=== PATIENT | male | born 1970 | race African-American/Black ===

== ENCOUNTER 2016-11-10 17:34 | Emergency (ER) ==
[2016-11-10 17:44] VITALS: BP 163/97; TEMP 97.7; BMI 37.2
[2016-11-10 18:09] LABS: BASOPHILS # (AUTO) 0.1 K/uL (0-0.2); BASOPHILS % (AUTO) 1.1 % (0.0-3.0); EOSINOPHILS # (AUTO) 0.1 K/ul (0.0-0.7); EOSINOPHILS % (AUTO) 2.4 % (0.0-7.0); HEMATOCRIT 35.7 % (42.0-52.0); HEMOGLOBIN 11.6 g/dl (14.0-18.0); IMMATURE GRANULOCYTE % (AUTO) 0.5 % (0.0-5.0); LYMPHOCYTES # (AUTO) 2.1 K/uL (0.60-3.4); LYMPHOCYTES % (AUTO) 38.4 (10.0-50.0); MEAN CORPUSCULAR HEMOGLOBIN 28.5 pg (27.0-31.0); MEAN CORPUSCULAR HGB CONC 32.5 (31.8-35.4); MEAN CORPUSCULAR VOLUME 87.7 fl (80.0-94.0); MONOCYTES # (AUTO) 0.5 K/uL (0.4-2.0); MONOCYTES % (AUTO) 8.4 (0-10); NEUTROPHILS # (AUTO) 2.7 K/ul (2.0-6.9); NEUTROPHILS % (AUTO) 49.2; PLATELET COUNT 165 10^3/uL (140-440); RED BLOOD COUNT 4.07 10^6/ul (4.70-6.10); WHITE BLOOD COUNT 5.49 K/ul (4.2-10.2)
[2016-11-10 18:23] LABS: BILIRUBIN,URINE Negative (NEGATIVE); KETONES,URINE Negative (NEGATIVE); LEUKOCYTE ESTERASE ,URINE Negative (NEGATIVE); NITRITE,URINE Negative (NEGATIVE); PH,URINE 5.5 (5-9); PROTEIN,URINE Negative (NEGATIVE); URINE, BLOOD Negative (NEGATIVE)
[2016-11-10 18:24] LABS: ADD URINE MICROSCOPIC NO
--- NOTE | 2016-11-10 18:45 | ED.PDOC ---
General Stated Complaint: c/o constipation since hernia repair one month ago..also right arm numbness as well for one month Time Seen by Physician: 17:45 Mode of Arrival: Walk-In Information Source: Patient Exam Limitations: No limitations Nursing and Triage Documentation Reviewed and Agree: Yes <SHERRI LOWE - Last Filed: 11/10/16 18:46> <KEVEN YATES - Last Filed: 11/10/16 19:43> ED Provider: Dr. KEVEN YATES (SHERRI LOWE) (KEVEN YATES) Chief Complaint: Abdominal Pain Primary Care Provider: SHERRI LOPEZ) (KEVEN YATES) GI Complaint Exam - Abdominal Pain Complaint/Exam Onset: Gradual Duration: 30 days Symptoms Are: Still present Timing: Intermittent Initial Severity: Mild Current Severity: Mild Location of Pain: Diffuse Character: Reports: Dull, Aching, Cramping Aggravating: Reports: None Alleviating: Reports: Spontaneous resolution Associated Signs and Symptoms: Reports: Constipation AAA Risk Factors: Reports: Hypertension Cardiac Risk Factors: Reports: DM, Hypertension Surgical Obstruction Risk Factors: Reports: None Related Surgical History: Reports: None Differential Diagnoses: Constipation Quality Indicator For Non-Traumatic Chest Pain/Syncope: EKG Performed <SHERRI LOWE - Last Filed: 11/10/16 18:46> Review of Systems - Review Of Systems Constitutional: Reports: No symptoms Eyes: Reports: No symptoms Ears, Nose, Mouth, Throat: Reports: No symptoms Respiratory: Reports: No symptoms Cardiac: Reports: No symptoms GI: Reports: Abdominal pain, Constipated : Reports: No symptoms Musculoskeletal: Reports: No symptoms Skin: Reports: No symptoms Neurological: Reports: No symptoms Endocrine: Reports: No symptoms Hematologic/Lymphatic: Reports: No symptoms All Other Systems: Reviewed and Negative <SHERRI LOWE - Last Filed: 11/10/16 18:46> Past Medical History - Past Medical History Endocrine: Reports: DM 2 Cardiovascular: Reports: Hypertension Respiratory: Reports: None Hematological: Reports: None, Sickle Cell Gastrointestinal: Reports: Pancreatitis Genitourinary: Reports: None Neuro/Psych: Reports: Seizure Musculoskeletal: Reports: None Cancer: Reports: None - Surgical History General Surgical History: Reports: None - Family History Family History: Reports: Hypertension - Social History Smoking Status: Current every day smoker, Heavy tobacco smoker Hx Substance Use: No Alcohol Screening: None Lives: With family <MYNORSHERRI - Last Filed: 11/10/16 18:46> - Surgical History General Surgical History: Reports: Hernia Repair (RT 1-17) <KEVEN YATES - Last Filed: 11/10/16 19:43> Physical Exam - Physical Exam Appearance: Well-appearing, No pain distress, Well-nourished Pain Distress: Mild Eyes: YRIS, EOMI, Conjunctiva clear ENT: Ears normal, Nose normal, Oropharynx normal Neck: Supple Respiratory: Airway patent Cardiovascular: RRR, Pulses normal, No rub, No murmur GI/: Soft, Nontender, No masses, Bowel sounds normal, No Organomegaly Musculoskeletal: Normal strength, ROM intact, No edema, No calf tenderness Skin: Warm, Dry, Normal color Neurological: Sensation intact, Motor intact, Reflexes intact, Cranial nerves intact, Alert, Oriented Psychiatric: Affect appropriate, Mood appropriate <EUGENIA-ELVISSHERRI - Last Filed: 11/10/16 18:46> Interpretation - Radiology Interpretation Radiology Interpretation By: Radiologist Radiology Results: Negative Exam Interpreted: CT Scan <MARGARET YATESAN Last Filed: 11/10/16 19:43> Physician Notification - Case Discussed Physician Notified: dr [email or web address] Time of Notification: 19:00 <MYNORSHERRI - Last Filed: 11/10/16 18:46> Critical Care Note - Critical Care Note Total Time (mins): 0 <KEVEN YATES - Last Filed: 11/10/16 19:43> Course - Course Hematology/Chemistry: 11/10/16 18:00 <MYNORSHERRI - Last Filed: 11/10/16 18:46> - Course Hematology/Chemistry: 11/10/16 18:00 11/10/16 18:00 <KEVEN YATES - Last Filed: 11/10/16 19:43> - Course Orders, Labs, Meds: Lab Review 11/10/16 18:00 WBC 5.49 RBC 4.07 L Hgb 11.6 L Hct 35.7 L MCV 87.7 MCH 28.5 MCHC 32.5 RDW Coeff of Zoya 16.3 H Plt Count 165 Immature Gran % (Auto) 0.5 Neut % (Auto) 49.2 Lymph % (Auto) 38.4 [place] % (Auto) 8.4 Eos % (Auto) 2.4 Baso % (Auto) 1.1 Immature Gran # (Auto) 0.0 Neut # 2.7 Lymph # 2.1 [place] # 0.5 Eos # 0.1 Baso # 0.1 ESR 34 H D-Dimer 0.48 Sodium 140 Potassium 3.4 L Chloride 107 Carbon Dioxide 24 Anion Gap 12.4 BUN 10 Creatinine 1.23 H Estimated GFR (MDRD) 77.00 BUN/Creatinine Ratio 8.13 Glucose 89 Calcium 8.9 Total Bilirubin 0.29 AST 26 ALT 18 Alkaline Phosphatase 97 Total Creatine Kinase 545 CK-MB (CK-2) 3.0 CK-MB (CK-2) % 0.21925 Troponin I < 0.0100 Total Protein 7.9 Albumin 3.8 Globulin 4.1 Albumin/Globulin Ratio 0.93 Amylase 93 Lipase 34 Urine Color Yellow Urine Clarity Clear Urine pH 5.5 Ur Specific [place] 1.010 Urine Protein Negative Urine Glucose (UA) Negative Urine Ketones Negative Urine Blood Negative Urine Nitrite Negative Urine Bilirubin Negative Urine Urobilinogen 0.2 Ur Leukocyte Esterase Negative Orders Category Date Time Status EKG-(ED ONLY) Stat CARDIO 11/10/16 17:52 Completed Upper Tier [ED COMPLIANCE MGR APPLIED] .ONCE EMERGENCY 11/10/16 17:53 Active AMYLASE Stat LAB 11/10/16 18:00 Completed CBC W/ AUTO DIFF Stat LAB 11/10/16 18:00 Completed COMPREHENSIVE METABOLIC PANEL Stat LAB 11/10/16 18:00 Completed CREATINE KINASE Stat LAB 11/10/16 18:00 Completed D-DIMER Stat LAB 11/10/16 18:00 Completed ESR Stat LAB 11/10/16 18:00 Completed LIPASE Stat LAB 11/10/16 18:00 Completed TROPONIN I Stat LAB 11/10/16 18:00 Completed URINALYSIS C & S IF INDICATED Stat LAB 11/10/16 18:[address] ABDOMEN/PELVIS WO CONTRAST Stat RADS 11/10/16 18:[address] CERVICAL SPINE W/O CONTRAST Stat RADS 11/10/16 18:[address] CHEST W/O CONTRAST Stat RADS 11/10/16 18:[address] HEAD W/O CONTRAST Stat RADS 11/10/16 18:39 Completed (EUGENIA-ER,SHERRI) (KEVEN YATES) Vital Signs: Temp Pulse Resp BP Pulse Ox 11/10/16 17:40 97.7 F 66 16 163/97 H 99 (SHERRI LOWE) (KEVEN YATES) Departure <SHERRI LOWE - Last Filed: 11/10/16 18:46> - Departure Time of Disposition: 19:37 Pt referred to PMD for follow-up: Yes Disposition Discussed With: Patient <KEVEN YATES - Last Filed: 11/10/16 19:43> - Departure Disposition: HOME SELF-CARE Discharge Problem: Abdominal pain, History of surgery for acute abdominal pain Instructions: Abdominal Pain (ED) Condition: Stable Additional Instructions: INCREASE HYDRATION HIGH FIBRE DIET HAVE F/U WITH SURGEON SCHEDULED. Allergies/Adverse Reactions: Allergies No Known Allergies Allergy (Verified 11/10/16 17:48) Home Medications: Ambulatory Orders Divalproex Sodium [Divalproex Sodium ER] 500 mg PO BID 06/22/15 Hydrochlorothiazide 12.5 mg PO DAILY 06/22/15 Metformin HCl [Glucophage] 500 mg PO BIDWM 06/22/15 Metoprolol Tartrate [Lopressor] 50 mg PO BID 06/22/15
[2016-11-10 18:55] LABS: ALANINE AMINOTRANSFERASE 18 U/L (12-78); ALBUMIN 3.8 g/dL (3.4-5.0); ALBUMIN/GLOBULIN RATIO 0.93; ALKALINE PHOSPHATASE 97 U/L (50-136); AMYLASE 93 U/L (25-115); ANION GAP 12.4; ASPARTATE AMINO TRANSFERASE 26 U/L (15-37); BILIRUBIN,TOTAL 0.29 mg/dL (0.00-1.20); BLOOD UREA NITROGEN 10 mg/dL (7-18); BUN/CREATININE RATIO 8.13; CALCIUM 8.9 mg/dL (8.2-10.2); CARBON DIOXIDE 24 mmol/L (21-32); CHLORIDE 107 mmol/L (98-107); CREATINE KINASE 545 U/L; CREATININE 1.23 mg/dL (0.60-1.10); GLUCOSE 89 mg/dL (70-100); LIPASE 34 U/L (8-78); POTASSIUM 3.4 mmol/L (3.5-5.1); SODIUM 140 mmol/L (136-145); TOTAL PROTEIN 7.9 g/dL (6.4-8.2)
[2016-11-10 18:57] LABS: ERYTHROCYTE SEDIMENTATION RATE 34 mm/hr (0-15); ESR INTERNAL QC INTERNAL QC VALID
--- NOTE | 2016-11-10 19:18 | CT ---
EXAM: CT head without contrast. HISTORY: Vomiting, numbness. COMPARISON: None available. TECHNIQUE: Multiple axial images of the brain were obtained from the skull base through the vertex without intravenous contrast. FINDINGS: There is no intracranial hemorrhage or extraaxial collection. The wright-white differentia tion is maintained without evidence for acute large vascular territory infarction. The cortical sul ci and basal cisterns are well visualized. There is no hydrocephalus, mass effect, or midline shift . The paranasal sinuses and mastoid air cells are clear. The calvarium is intact. IMPRESSION: No acute intracranial abnormality.
--- NOTE | 2016-11-10 19:22 | CT ---
EXAM: CT cervical spine without contrast. HISTORY: Vomiting. Right arm numbness. COMPARISON: None available. TECHNIQUE: Multiple axial images of the cervical spine were obtained without intravenous contrast. Images were reformatted in the sagittal and coronal planes. FINDINGS: There is straightening of the normal lordosis which may be positional. Otherwise, there is normal curvature and alignment. Vertebral body and intervertebral disc heights are maintained. No fracture or subluxation is seen. There is no evidence for significant central canal stenosis. T he prevertebral soft tissues are unremarkable. IMPRESSION: No acute abnormality of the cervical spine.
--- NOTE | 2016-11-10 19:24 | CT ---
EXAM: CT chest without contrast. HISTORY: Right arm numbness. Vomiting. Constipation. Recent hernia surgery. COMPARISON: Chest radiograph 05/27/2016. TECHNIQUE: Multiple axial images of the chest were obtained without intravenous contrast. Images w ere reformatted in the sagittal and coronal planes. FINDINGS: Evaluation for lymphadenopathy is limited due to lack of intravenous contrast. Heart siz e is normal. There is no pericardial effusion. Dependent ground-glass opacities seen in both lower lobes, consist with subsegmental atelectasis. No lobar consolidation, pleural effusion or pneumoth orax identified. Limited images of the upper abdomen demonstrate no acute abnormality. Refer to abdominal CT report for details. The osseous structures are within normal limits for the patient's age. IMPRESSION: No acute abnormality of the chest.
--- NOTE | 2016-11-10 19:30 | CT ---
EXAM: CT Abdomen without contrast. CT Pelvis without contrast. HISTORY: Abdominal pain, constipation. Recent right hernia repair. COMPARISON: 05/27/2016. TECHNIQUE: Multiple axial images of the abdomen and pelvis were obtained without intravenous contra st. Images were reformatted in the coronal plane. FINDINGS: Please note that evaluation of the abdominal and pelvic structures is limited due to lack of intravenous contrast. Dependent subsegmental atelectasis seen in the lower lobes. No acute osseous abnormality identified . Degenerative changes are seen at L5-S1. Gallbladder is contracted. The liver, pancreas, spleen, adrenal glands, and kidneys demonstrate nor mal contour. No calcified renal stones or hydronephrosis detected. Possible wall thickening of the ascending colon best seen on axial images 57-76 although this area i s incompletely distended. There is no cecal or small bowel distension however. There is normal dis tension of the remainder of the colon. The appendix is not seen. Urinary bladder is unremarkable. There has been interval right inguinal hernia repair. No abnormal fluid collections or abnormal ai r collections identified. Moderate-sized fat-containing umbilical hernia is present. IMPRESSION: 1. Focal wall thickening versus incomplete distension of the ascending colon. Consider follow-up C T or barium enema as warranted. No evidence for bowel obstruction. 2. Evidence of right inguinal hernia repair without complication. 3. Fat-containing umbilical hernia.
== END 2016-11-10 19:49 | disposition home or self-care (01) ==
LOC: ED 17:34
DX: R10.84 Generalized abdominal pain (principal); I10 Essential (primary) hypertension; E11.9 Type 2 diabetes mellitus without complications; K59.00 Constipation, unspecified; F17.210 Nicotine dependence, cigarettes, uncomplicated; D57.1 Sickle-cell disease without crisis; Z98.890 Other specified postprocedural states; Z79.899 Other long term (current) drug therapy
CPT/HCPCS: 36415; 80053; 81001; 82150; 82550; 82553; 83690; 84484; 85025; 85379; 85651; 93005; 93010; 99283

== ENCOUNTER 2017-02-22 12:00 | Outpatient (CLI) ==
[2013-03-01 11:31] VITALS: TEMP 98
[2017-02-22 13:31] LABS: BASOPHILS # (AUTO) 0.1 K/uL (0-0.2); BASOPHILS % (AUTO) 1.1 % (0.0-3.0); EOSINOPHILS # (AUTO) 0.1 K/ul (0.0-0.7); EOSINOPHILS % (AUTO) 1.7 % (0.0-7.0); HEMATOCRIT 36.1 % (42.0-52.0); HEMOGLOBIN 11.5 g/dl (14.0-18.0); IMMATURE GRANULOCYTE % (AUTO) 0.3 % (0.0-5.0); LYMPHOCYTES # (AUTO) 1.9 K/uL (0.60-3.4); LYMPHOCYTES % (AUTO) 30.1 (10.0-50.0); MEAN CORPUSCULAR HEMOGLOBIN 28.1 pg (27.0-31.0); MEAN CORPUSCULAR HGB CONC 31.9 (31.8-35.4); MEAN CORPUSCULAR VOLUME 88.3 fl (80.0-94.0); MONOCYTES # (AUTO) 0.5 K/uL (0.4-2.0); MONOCYTES % (AUTO) 8.1 (0-10); NEUTROPHILS # (AUTO) 3.8 K/ul (2.0-6.9); NEUTROPHILS % (AUTO) 58.7; PLATELET COUNT 151 10^3/uL (140-440); RED BLOOD COUNT 4.09 10^6/ul (4.70-6.10); WHITE BLOOD COUNT 6.42 K/ul (4.2-10.2)
[2017-02-22 14:07] LABS: ALBUMIN 3.9 g/dL (3.4-5.0); ALBUMIN/GLOBULIN RATIO 0.93; ANION GAP 12.6; BILIRUBIN,TOTAL 0.39 mg/dL (0.00-1.20); BUN/CREATININE RATIO 8.33; CALCIUM 9.2 mg/dL (8.2-10.2); CREATININE 1.2 mg/dL (0.60-1.10); POTASSIUM 3.6 mmol/L (3.5-5.1); TOTAL PROTEIN 8.1 g/dL (6.4-8.2)
== END 2017-02-22 12:01 | disposition home or self-care (01) ==
LOC: LAB 12:00
PROVIDERS: ATTEND Nurse Practitioner Family
DX: E75.6 Lipid storage disorder, unspecified (principal); I10 Essential (primary) hypertension; Z86.39 Personal history of other endocrine, nutritional and metabolic disease
CPT/HCPCS: 36415; 80053; 80061; 83036; 85025

== ENCOUNTER 2017-05-03 11:31 | Emergency (ER) ==
[2017-05-03 11:41] VITALS: BP 157/100; TEMP 98.4; BMI 28.8
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
[2017-05-03] MEDS: BENADRYL PO STA (12:08)
[2017-05-03] MEDS: SOLU-MEDROL 125 MG IM STA (12:10)
--- NOTE | 2017-05-03 12:45 | DI ---
EXAM: CHEST FRONTAL AND LATERAL VIEWS HISTORY: Cough, edema. COMPARISON: 05/27/2016 FINDINGS: Heart size and mediastinal contour remain within normal limits. No acute infiltrates. Normal vascularity with no pleural fluid or pneumothorax. The bony thorax has no acute finding. IMPRESSION: No acute process.
== END 2017-05-03 13:22 | disposition home or self-care (01) ==
LOC: ED 11:31
DX: T78.1XXA Other adverse food reactions, not elsewhere classified, initial encounter (principal); T78.3XXA Angioneurotic edema, initial encounter; I10 Essential (primary) hypertension; F17.210 Nicotine dependence, cigarettes, uncomplicated
CPT/HCPCS: 96372; 99283

== ENCOUNTER 2017-06-01 08:44 | Emergency (ER) ==
[2017-06-01 08:58] VITALS: BP 157/94; TEMP 98.2; BMI 29.7
[2017-06-01] MEDS ORDERED: TORADOL IM STA (09:09)
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
== END 2017-06-01 10:05 | disposition home or self-care (01) ==
LOC: ED 08:44
DX: S60.211A Contusion of right wrist, initial encounter (principal); S63.501A Unspecified sprain of right wrist, initial encounter; W20.8XXA Other cause of strike by thrown, projected or falling object, initial encounter
CPT/HCPCS: 96372; 99283

== ENCOUNTER 2017-06-14 11:36 | Outpatient (CLI) ==
[2013-03-01 11:31] VITALS: TEMP 98
[2017-06-14 12:32] LABS: BASOPHILS # (AUTO) 0.1 K/uL (0-0.2); BASOPHILS % (AUTO) 1.1 % (0.0-3.0); EOSINOPHILS # (AUTO) 0.1 K/ul (0.0-0.7); EOSINOPHILS % (AUTO) 2.2 % (0.0-7.0); HEMATOCRIT 37.9 % (42.0-52.0); HEMOGLOBIN 12.4 g/dl (14.0-18.0); IMMATURE GRANULOCYTE % (AUTO) 0.5 % (0.0-5.0); LYMPHOCYTES # (AUTO) 2.2 K/uL (0.60-3.4); LYMPHOCYTES % (AUTO) 35.2 (10.0-50.0); MEAN CORPUSCULAR HGB CONC 32.7 (31.8-35.4); MEAN CORPUSCULAR VOLUME 88.8 fl (80.0-94.0); MONOCYTES # (AUTO) 0.5 K/uL (0.4-2.0); MONOCYTES % (AUTO) 7.2 (0-10); NEUTROPHILS # (AUTO) 3.4 K/ul (2.0-6.9); NEUTROPHILS % (AUTO) 53.8; PLATELET COUNT 149 10^3/uL (140-440); RED BLOOD COUNT 4.27 10^6/ul (4.70-6.10); WHITE BLOOD COUNT 6.28 K/ul (4.2-10.2)
--- NOTE | 2017-06-14 13:12 | CT ---
EXAM: CT of the abdomen pelvis without contrast History: Generalized abdominal pain. Comparison: CT abdomen pelvis 11/10/2016 Technique: Multiplanar CT images through the abdomen pelvis were obtained without the administration of IV contrast Findings: Lung bases are clear. No acute osseous abnormalities. Moderate degenerative disc disease at L5-S1. No discrete gallstones identified by CT. No focal liver or splenic lesions. No peripancreatic infla mmation. Adrenal glands are unremarkable. No renal stones and no hydronephrosis. Fat-containing um bilical hernia again noted. No bowel obstruction. Scattered colonic stool. No bladder wall thicken ing. No perirectal inflammation. Prostate is not enlarged. Question small bilateral scrotal hydroc eles. Impression: 1. No acute intra-abdominal or pelvic process. 2. Question small bilateral scrotal hydroceles. 3. Fat-containing umbilical hernia again noted.
[2017-06-14 13:26] LABS: ALANINE AMINOTRANSFERASE 20 U/L (12-78); ALBUMIN 4.1 g/dL (3.4-5.0); ALBUMIN/GLOBULIN RATIO 0.85; ALKALINE PHOSPHATASE 107 U/L (50-136); AMYLASE 104 U/L (25-115); ANION GAP 13.5; ASPARTATE AMINO TRANSFERASE 18 U/L (15-37); BILIRUBIN,TOTAL 0.56 mg/dL (0.00-1.20); BLOOD UREA NITROGEN 10 mg/dL (7-18); BUN/CREATININE RATIO 8.19; CALCIUM 9.7 mg/dL (8.2-10.2); CARBON DIOXIDE 25 mmol/L (21-32); CHLORIDE 103 mmol/L (98-107); CHOL/HDL RATIO 5.8 (4.5-6.4); CHOLESTEROL 273 mg/dL (0-200); CREATININE 1.22 mg/dL (0.60-1.10); FERRITIN 8.32 ng/mL (21.81-274.66); GLUCOSE 90 mg/dL (70-100); HDL CHOLESTEROL 47 mg/dL (35-60); IRON 63 ug/dL (65-175); LIPASE 12 U/L (8-78); POTASSIUM 3.5 mmol/L (3.5-5.1); SODIUM 138 mmol/L (136-145); TOTAL IRON BINDING CAPACITY 481 ug/dL (240-450); TOTAL PROTEIN 8.9 g/dL (6.4-8.2); TRIGLYCERIDES 163 mg/dL (30-150); VLDL CHOLESTEROL 33 mg/dL (2-30)
[2017-06-14 13:32] LABS: VALPORIC ACID (DEPAKENE) < 2.00 ug/mL (50.00-100.00)
== END 2017-06-14 11:37 | disposition home or self-care (01) ==
LOC: RAD 11:36
PROVIDERS: ATTEND Nurse Practitioner Family
DX: R10.84 Generalized abdominal pain (principal); N50.82 Scrotal pain; D64.9 Anemia, unspecified; E75.6 Lipid storage disorder, unspecified; I10 Essential (primary) hypertension; G40.909 Epilepsy, unspecified, not intractable, without status epilepticus; Z86.39 Personal history of other endocrine, nutritional and metabolic disease
CPT/HCPCS: 36415; 80053; 80061; 80164; 82150; 82607; 82728; 83036; 83540; 83550; 83690; 84439; 84443; 84466; 85025

== ENCOUNTER 2017-09-08 14:10 | Outpatient (CLI) ==
[2013-03-01 11:31] VITALS: TEMP 98
[2017-09-08 14:15] LABS: BASOPHILS # (AUTO) 0.1 K/uL (0-0.2); BASOPHILS % (AUTO) 1.2 % (0.0-3.0); EOSINOPHILS # (AUTO) 0.1 K/ul (0.0-0.7); EOSINOPHILS % (AUTO) 2.6 % (0.0-7.0); HEMATOCRIT 37.4 % (42.0-52.0); HEMOGLOBIN 12.2 g/dl (14.0-18.0); IMMATURE GRANULOCYTE % (AUTO) 0.2 % (0.0-5.0); LYMPHOCYTES # (AUTO) 1.7 K/uL (0.60-3.4); LYMPHOCYTES % (AUTO) 41.2 (10.0-50.0); MEAN CORPUSCULAR HEMOGLOBIN 29.3 pg (27.0-31.0); MEAN CORPUSCULAR HGB CONC 32.6 (31.8-35.4); MEAN CORPUSCULAR VOLUME 89.7 fl (80.0-94.0); MONOCYTES # (AUTO) 0.4 K/uL (0.4-2.0); MONOCYTES % (AUTO) 8.9 (0-10); NEUTROPHILS # (AUTO) 1.9 K/ul (2.0-6.9); NEUTROPHILS % (AUTO) 45.9; PLATELET COUNT 146 10^3/uL (140-440); RED BLOOD COUNT 4.17 10^6/ul (4.70-6.10); WHITE BLOOD COUNT 4.17 K/ul (4.2-10.2)
[2017-09-08 15:51] LABS: ALBUMIN/GLOBULIN RATIO 0.87; ANION GAP 11.8; BILIRUBIN,TOTAL 0.49 mg/dL (0.00-1.20); BUN/CREATININE RATIO 8.02; CALCIUM 9.4 mg/dL (8.2-10.2); CHOL/HDL RATIO 6.3 (4.5-6.4); CREATININE 1.37 mg/dL (0.60-1.10); POTASSIUM 3.8 mmol/L (3.5-5.1); TOTAL PROTEIN 8.6 g/dL (6.4-8.2)
== END 2017-09-08 14:11 | disposition home or self-care (01) ==
LOC: LAB 14:10
PROVIDERS: ATTEND Nurse Practitioner Family
DX: D64.9 Anemia, unspecified (principal); I10 Essential (primary) hypertension; R10.84 Generalized abdominal pain
CPT/HCPCS: 36415; 80053; 80061; 82150; 83036; 83690; 85025

== ENCOUNTER 2017-09-14 09:14 | Outpatient (CLI) ==
[2013-03-01 11:31] VITALS: TEMP 98
--- NOTE | 2017-09-14 10:25 | US ---
EXAM: Limited abdominal ultrasound. History: Generalized abdominal pain. Comparison: CT abdomen pelvis 06/14/2017 Technique: Multiple sonographic images through the abdomen were obtained. Color duplex Doppler was used to interrogate vascular flow. Findings: Pancreas was not well visualized due to obscuration by bowel gas. There is antegrade flow within the main portal vein. The liver is not echogenic compared to the adjacent right renal cortex. No focal liver lesions identified sonographically. No abdominal ascites. No shadowing gallstones. Gallbladder wall is not thickened. Common bile duct measures 0.4 cm in caliber. Limited visualiza tion of the right kidney demonstrates no evidence for hydronephrosis. Impression: Unremarkable exam
== END 2017-09-14 09:15 | disposition home or self-care (01) ==
LOC: RAD 09:14
PROVIDERS: ATTEND Nurse Practitioner Family
DX: R10.84 Generalized abdominal pain (principal); R10.9 Unspecified abdominal pain

== ENCOUNTER 2017-09-20 07:41 | Outpatient (CLI) ==
[2013-03-01 11:31] VITALS: TEMP 98
--- NOTE | 2017-09-20 10:25 | NM ---
EXAM: Hepatobiliary scan HISTORY: Generalized abdominal pain. COMPARISON: None of this type. Ultrasound 09/14/2017. PROCEDURE: The patient was injected with 5 mCi of 99mTc mebrofenin intravenously. Images of the abdo men were obtained at 5 min intervals for 30 minutes. Additional images were obtained 45 minutes and 1 hour. The patient was then injected with 2 mcg of CCK by slow infusion while images of the gallblad antolin were obtained to assess gallbladder contraction. The the patient reported no symptoms during CCK injection. FINDINGS: Sequential images demonstrate normal uptake of tracer into the liver. Activity is seen in the intrahepatic biliary ducts at about 15 minutes. The activity appears in the gallbladder at about 20 minutes. Subsequent images demonstrate increasing activity in the gallbladder. Activity first a ppears in the small bowel following CCK. The gallbladder ejection fraction is 6% . IMPRESSION: 1.Normal hepatobiliary scan. 2.The gallbladder ejection fraction is 6% (low).
== END 2017-09-20 07:42 | disposition home or self-care (01) ==
LOC: RAD 07:41
PROVIDERS: ATTEND Emergency Medicine
DX: R10.84 Generalized abdominal pain (principal); R10.9 Unspecified abdominal pain

== ENCOUNTER 2017-11-25 07:29 | Observation (INO) ==
[2017-11-25 07:36] VITALS: BP 174/118
--- NOTE | 2017-11-25 07:47 | ED.PDOC ---
General ED Provider: Dr. WINDY MOON Chief Complaint: Extremity Pain/Injury Stated Complaint: Patient is a 47 year old male who has a history of hypertension who comes to the ER with complaints of left shoulder pain, left eye pain , chest pain and headache that started yesterday. States has pain is worse with movement of left shoulder. Denies any heavy lifting or trauma. Rates his pain as severe. Time Seen by Physician: 07:49 Mode of Arrival: Walk-In Information Source: Patient Exam Limitations: No limitations [facility] Nursing and Triage Documentation Reviewed and Agree: Yes Reviewed sepsis parameters & appropriate labs ordered?: No System Inflammatory Response Syndrome: Not Applicable Sepsis Protocol: For patient's 13 years and over: Temp is 96.8 and below OR 101 and greater Pulse >90 BPM Resp >20/minute Acutely Altered Mental Status Are patient's symptoms suggestive of a new infection, such as: -Pneumonia -Skin, Soft Tissue -Endocarditis -UTI -Bone, Joint Infection -Implantable Device -Acute Abdominal Infection -Wound Infection -Meningitis -Blood Stream Catheter Infection -Unknown System Inflammatory Response Syndrome: Not Applicable Musculoskeletal Complaint Exam - Shoulder Pain Complaint/Exam Mechanism of Injury: Reports: No known trauma Onset/Duration: 1 day Symptoms Are: Still present Timing: Constant Initial Severity: Moderate Current Severity: Severe Location: Reports: Diffuse Character: Reports: Aching Aggravating: Reports: Movement, Lifting Associated Signs and Symptoms: Denies: Swelling, Redness, Bruising, Fever, Weakness, Numbness, Tingling Non-Orthopedic Risk Factors: Reports: Referred pain from chest DVT Risk Factors: Reports: None Septic Arthritis Risk Factors: Reports: None Related Surgical History: Reports: None Tenderness: Present: Rotator cuff muscles Limited Range of Motion: Present: Abduction, External rotation Differential Diagnoses: Rotator Cuff Injury, Sprain, Strain Review of Systems - Review Of Systems Constitutional: Reports: No symptoms Eyes: Reports: Pain (Left eye pain ) Ears, Nose, Mouth, Throat: Reports: No symptoms Respiratory: Reports: No symptoms Cardiac: Reports: Chest pain GI: Reports: No symptoms : Reports: No symptoms Musculoskeletal: Reports: No symptoms Skin: Reports: No symptoms Neurological: Reports: Anxiety, Headache Endocrine: Reports: No symptoms Hematologic/Lymphatic: Reports: No symptoms All Other Systems: Reviewed and Negative Past Medical History - Past Medical History Endocrine: Reports: DM 2 Cardiovascular: Reports: Hypertension Respiratory: Reports: None Hematological: Reports: Sickle Cell Gastrointestinal: Reports: Pancreatitis Genitourinary: Reports: None Neuro/Psych: Reports: Seizure Musculoskeletal: Reports: None Cancer: Reports: None Other Pertinent Past Medical History: hernia surgery right lower abd- states having rectal bleeding(recc follow u - Surgical History General Surgical History: Reports: Hernia Repair (RT 1-17) - Family History Family History: Reports: Hypertension - Social History Smoking Status: Current every day smoker, Heavy tobacco smoker Hx Substance Use: No Alcohol Screening: None Physical Exam - Physical Exam Appearance: Ill-appearing Ill-appearing: Moderate Pain Distress: Severe Eyes: YRIS, EOMI, Conjunctiva clear Neck: Supple Respiratory: Airway patent, Breath sounds clear, Breath sounds equal, Respirations nonlabored Cardiovascular: RRR, Pulses normal, No rub, No murmur GI/: Soft, Nontender, No masses, Bowel sounds normal, No Organomegaly Musculoskeletal: Normal strength, No edema, No calf tenderness, Limited ROM (on the left shoulder. ) Skin: Warm, Dry, Normal color Neurological: Sensation intact, Alert, Oriented Psychiatric: Anxious Interpretation - Radiology Interpretation Radiology Interpretation By: Radiologist Radiology Results: Negative Exam Interpreted: CXR, Other (left shoulder x ray ) Radiology Interpretation By: Radiologist Radiology Results: Negative Exam Interpreted: CT Scan (head ) - EKG Interpretation Time of EKG #1: 07:58 Rate: Efren Rhythm: Sinus Ectopy: None [place]: NL ST Segment: Normal Interpretation: sinus Bradycaria Critical Care Note - Critical Care Note Total Time (mins): 35 Course - Course Hematology/Chemistry: 11/25/17 08:08 11/25/17 08:08 Orders, Labs, Meds: Lab Review 11/25/17 11/25/17 11/25/17 08:08 08:08 08:08 WBC 8.64 RBC 3.95 L Hgb 11.7 L Hct 35.8 L MCV 90.6 MCH 29.6 MCHC 32.7 RDW Coeff of Zoya 13.9 Plt Count 143 Immature Gran % (Auto) 0.3 Neut % (Auto) 72.7 Lymph % (Auto) 17.9 [place] % (Auto) 6.9 Eos % (Auto) 1.4 Baso % (Auto) 0.8 Immature Gran # (Auto) 0.0 Neut # (Auto) 6.3 Lymph # (Auto) 1.6 [place] # (Auto) 0.6 Eos # (Auto) 0.1 Baso # (Auto) 0.1 D-Dimer (Manual) 261.77 Sodium 139 Potassium 3.4 L Chloride 106 Carbon Dioxide 24 Anion Gap 12.4 BUN 10 Creatinine 1.10 Estimated GFR (MDRD) 87.00 BUN/Creatinine Ratio 9.09 Glucose 111 H Calcium 9.2 Total Bilirubin 0.7 AST 25 ALT 25 Alkaline Phosphatase 99 Total Creatine Kinase 591 CK-MB (CK-2) 2.8 CK-MB (CK-2) % 0.95215 Troponin I 0.0190 Total Protein 8.0 Albumin 3.7 Globulin 4.3 Albumin/Globulin Ratio 0.86 Orders Category Date Time Status EKG-(ED ONLY) Stat CARDIO 11/25/17 07:40 Completed ED IV/MEDIPORT/POWERPORT .ONCE EMERGENCY 11/25/17 07:57 Active CBC W/ AUTO DIFF Stat LAB 11/25/17 08:08 Completed COMPREHENSIVE METABOLIC PANEL Stat LAB 11/25/17 08:08 Completed CREATINE KINASE Stat LAB 11/25/17 08:08 Completed D-DIMER Stat LAB 11/25/17 08:08 Completed TROPONIN I Stat LAB 11/25/17 08:08 Completed 0.9 % Sodium Chloride [Saline Flush] MEDS 11/25/17 07:58 Active 1 syr IVF PRN PRN Aspirin [Aspirin Chewable] MEDS 11/25/17 08:09 Discontinued 324 mg PO ONCE STA Ketorolac Tromethamine [Toradol] MEDS 11/25/17 09:08 Discontinued 30 mg IVP ONCE STA Morphine Sulfate [Morphine 2 mg/ml Syringe] MEDS 11/25/17 07:58 Discontinued 2 mg IVP ONCE STA Nitroglycerin [Nitrostat] MEDS 11/25/17 07:58 Discontinued 0.4 mg SL ONCE STA Ondansetron HCl/Pf [Zofran 4 mg/2 ml] MEDS 11/25/17 07:58 Discontinued 4 mg IVP ONCE STA Sodium Chloride 0.9% [Sodium Chloride] 1,000 ml MEDS 11/25/17 07:59 Active IV 100 mls/hr CHEST, 2 VIEWS PA & LAT Stat RADS 11/25/17 07:[address] HEAD W/O CONTRAST Stat RADS 11/25/17 07:44 Completed SHOULDER, LEFT MIN 2V Stat RADS 11/25/17 07:40 Completed Medications Generic Name Dose Route Start Last Admin Trade Name Freq PRN Reason Stop Dose Admin Sodium Chloride 1,000 mls @ 100 mls/hr 11/25/17 07:59 11/25/17 08:20 Sodium Chloride IV 11/25/17 17:58 100 mls/hr .Q10H STA Administration Sodium Chloride 1 syr 11/25/17 07:58 11/25/17 09:25 Saline Flush IVF 1 syr PRN PRN Administration To flush IV Discontinued Medications Generic Name Dose Route Start Last Admin Trade Name Freq PRN Reason Stop Dose Admin Aspirin 324 mg 11/25/17 08:09 11/25/17 08:18 Aspirin Chewable PO 11/25/17 08:10 324 mg ONCE STA Administration Ketorolac Tromethamine 30 mg 11/25/17 09:08 11/25/17 09:25 Toradol IVP 11/25/17 09:09 30 mg ONCE STA Administration Morphine Sulfate 2 mg 11/25/17 07:58 11/25/17 08:12 Morphine 2 Mg/Ml Syringe IVP 11/25/17 07:59 2 mg ONCE STA Administration Nitroglycerin 0.4 mg 11/25/17 07:58 11/25/17 08:11 Nitrostat SL 11/25/17 07:59 0.4 mg ONCE STA Administration Ondansetron HCl 4 mg 11/25/17 07:58 11/25/17 08:11 Zofran 4 Mg/2 Ml IVP 11/25/17 07:59 4 mg ONCE STA Administration Vital Signs: Temp Pulse Resp BP Pulse Ox 11/25/17 07:31 97.9 F 69 20 174/118 H 95 Departure - Departure Time of Disposition: 10:20 Disposition: PLACED OBSERVATION Discharge Problem: Chest pain Qualifiers: Chest pain type: intercostal pain Qualified Code(s): R07.82 - Intercostal pain Condition: Stable Pt referred to PMD for follow-up: No (admitted ) IPMP verified?: No Allergies/Adverse Reactions: Allergies No Known Allergies Allergy (Verified 11/25/17 07:37) Home Medications: Ambulatory Orders Divalproex Sodium [Divalproex Sodium ER] 500 mg PO BID 06/22/15 Metformin HCl [Glucophage] 500 mg PO BIDWM 06/22/15 Metoprolol Tartrate [Lopressor] 50 mg PO BID 06/22/15 Disposition Discussed With: Patient
[2017-11-25] MEDS ORDERED: MORPHINE 2 MG/ML SYRINGE IVP STA (07:58)
[2017-11-25] MEDS ORDERED: ZOFRAN 4 MG/2 ML IVP STA (07:58)
[2017-11-25] MEDS ORDERED: NITROSTAT SL STA (07:58)
[2017-11-25] MEDS ORDERED: SODIUM CHLORIDE 1,000 ML IV STA (07:59)
[2017-11-25] MEDS ORDERED: ASPIRIN CHEWABLE PO STA (08:09)
--- NOTE | 2017-11-25 08:16 | CT ---
EXAM: CT head without contrast HISTORY: Headache COMPARISON: CT head from 11/10/2016 TECHNIQUE: Helical axial CT of the head was performed without contrast. Coronal and sagittal reconstr uctions were performed. FINDINGS: There is no acute intracranial abnormality. There is no hemorrhage, mass, midline shift, abnormal ex tra-axial fluid collection, hydrocephalus or evolving ischemia. The wright-white matter junction is wel l maintained. Brain parenchyma, ventricles and sulci are normal. There are no acute calvarial lesions. Visualized orbits and globes are unremarkable. The mastoid ai r cells demonstrate no significant soft tissue opacification. The visualized paranasal sinuses show n o air-fluid levels. IMPRESSION: Negative head CT
--- NOTE | 2017-11-25 08:33 | DI ---
EXAM: Three views of the left shoulder HISTORY: Left shoulder pain. COMPARISON: None FINDINGS: There is no displaced fracture or dislocation of the left shoulder. The acromioclavicular joint and glenohumeral joint are normal. The soft tissues and adjacent osseous structures are normal . IMPRESSION: No acute abnormality of the left shoulder.
--- NOTE | 2017-11-25 08:34 | DI ---
EXAM: PA and lateral views of the chest HISTORY: Chest pain COMPARISON: Chest x-ray 05/03/[address] chest 11/10/2016 FINDINGS: The cardiomediastinal silhouette is normal. There is no pneumothorax or pleural effusion. There is no consolidation, nodule or mass. The osseous structures are unremarkable. IMPRESSION: No acute cardiopulmonary process
[2017-11-25] MEDS ORDERED: TORADOL IVP STA (09:08)
[2017-11-25 10:49] VITALS: TEMP 97.2; BMI 30.5
--- NOTE | 2017-12-22 14:26 | SSS ---
DATE OF SERVICE: 11/25/17 CHIEF COMPLAINT: Chest pain. HISTORY OF PRESENT ILLNESS: This is a 47 year old male with a history of poorly controlled diabetes and hypertension who came to the emergency room with left arm pain and shoulder pain. It started early in the morning and he did not sleep well. Left eye pain, but no visual changes. No blurriness and no slurring speech. He was seen by Dr. Patel in the emergency room. Blood pressure was 174/118. The patient does have sickle cell problem and recently had a sickle cell crisis and the pain was more on the left shoulder area and not in the left side of the chest. With the given chest pain, left shoulder pain and history of diabetes and the sickle cell crisis, the patient was admitted to the hospital for ruling out acute coronary syndrome. PAST MEDICAL HISTORY: Hypertension Diabetes Sickle cell disease Pancreatitis Seizure disorder PAST SURGICAL HISTORY: Hernia surgery right lower abdomen PERSONAL HISTORY: Currently and every day smoker, heavy tobacco smoker. No alcohol and no drugs. FAMILY HISTORY: Significant for the hypertension and dyslipidemia. HOME MEDICATIONS: Lopressor, Glucophage, Divalproex, Hydrochlorothiazide, Lisinopril, Ferrous Sulfate, Promethazine, Hydrocodone and Zantac. ALLERGIES: No known drug allergies. PHYSICAL EXAMINATION: V/S: Blood pressure is 174/118, respiratory rate 20, heart rate 69, temperature 97.9, saturation 95. HEENT: Atraumatic, normocephalic. No scleral icterus. Mucosa dry. NECK: Supple. No JVD, no bruit. No lymphadenopathy. No thyromegaly. HEART: S1, S2 normal. No murmur. No cyanosis or clubbing. No ascites. LUNGS: Clear to auscultation. No rales or rhonchi. ABDOMEN: Soft, nontender. Bowel sounds are active. No CVA tenderness. No rigidity or guarding. EXTREMITIES: No pedal edema. No cyanosis or clubbing MUSCULOSKELETAL: Pain in the left shoulder area. Range of motion of the shoulder is decreased and it does hurt and there is some tenderness below the left nipple area. NEUROLOGIC: Normal. SKIN: Intact; no open lesions. LYMPHATIC: No lymph nodes palpable. LABS: Sodium 139, potassium 3.4, chloride 106, bicarb 24, BUN 10, creatinine 1.10, white count 8.64, hemoglobin 11.7, hematocrit 35.8, platelet count is 143. REVIEW OF SYSTEMS: CONSTITUTIONAL: No fever, no chills. HEENT: Normal. ENDOCRINE: No weight gain; no weight loss. CVS: Chest pain. No PND, no orthopnea. No shortness of breath. No PND, no orthopnea. RESPIRATORY: No cough, no congestion. No hemoptysis. GI: No nausea, no vomiting. No abdominal pain. No melena. : No hematuria. No polyuria. MUSCULOSKELETAL: No joint swelling. PSYCHIATRIC: Not anxious. No depression. No suicidal thoughts. No homicidal thoughts. SKIN: Intact, no open lesions. ASSESSMENT: 1. CHEST PAIN, RULE OUT ACUTE CORONARY SYNDROME 2. DIABETES 3. HYPERTENSION 4. DYSLIPIDEMIA 5. ANEMIA 6. SICKLE CELL DISEASE 7. HYPOKALEMIA BRIEF HOSPITAL COURSE: The patient was admitted to the hospital. Toradol was given in the ER by Dr. Patel, which did resolve the pain. By the time the patient came to the floor, he did not have any problems. I came and examined the patient. The EKG was normal sinus rhythm with no changes. The patient insisted on going home, as the patient has some personal issues that he has to take care of. Otherwise, he was threatening to sign out AMA. As the patient is a very regular follow up patient at the clinic, I decided to send the patient home as the EKG's were negative and we will be doing the cardiac work- up as an outpatient and the patient is chest pain free. On outpatient the patient was recently cleared by the surgeon by doing the stress test at an outside facility for the gallbladder surgery. The patient is due for the gallbladder surgery and the patient has been cleared for the surgery. So keeping these recent stress test and echocardiogram as per the patient done and cleared for the gallbladder repair, I assume cardiac [place] the patient should be stable at this given time. I did tell the patient that he should have a follow up with me within 3 to 4 days in the [facility] and verbalized and promised understanding. FINAL DIAGNOSIS: 1. CHEST PAIN, NONCARDIAC 2. DIABETES 3. HYPERTENSION 4. DYSLIPIDEMIA 5. CHOLELITHIASIS AND EVALUATION FOR THE GALLBLADDER SURGERY. THE PATIENT HAS BEEN CLEARED BY THE SURGEON FOR THE SURGERY. PLAN: 1. Discharge the patient home. 2. Lifestyle modifications of weight loss and diet control. 3. Prednisone 10 mg twice a day for shoulder pain and pleuritic pain. Control of the blood pressure and risk of the stroke and coronary artery disease was discussed and he verbalized understanding. TIME SPENT: MORE THAN 70 minutes MTDTova
== END 2017-11-25 13:50 | disposition home or self-care (01) ==
LOC: ED 07:29 → MEDSURG B 09:44
PROVIDERS: ADMIT Emergency Medicine; ATTEND Emergency Medicine
DX: R07.89 Other chest pain (principal); R07.82 Intercostal pain; M25.512 Pain in left shoulder; D57.1 Sickle-cell disease without crisis; H57.12 Ocular pain, left eye; R51 Headache; R00.1 Bradycardia, unspecified; I10 Essential (primary) hypertension; E11.9 Type 2 diabetes mellitus without complications; D64.9 Anemia, unspecified; E87.6 Hypokalemia; E78.5 Hyperlipidemia, unspecified; K80.20 Calculus of gallbladder without cholecystitis without obstruction; F17.210 Nicotine dependence, cigarettes, uncomplicated; Z79.84 Long term (current) use of oral hypoglycemic drugs
CPT/HCPCS: 36415; 80053; 82550; 82553; 84484; 85025; 85379; 93005; 93010; 96361; 96374; 96375; 99284

== ENCOUNTER 2018-02-05 10:27 | Outpatient (CLI) ==
[2013-03-01 11:31] VITALS: TEMP 98
== END 2018-02-05 10:28 | disposition home or self-care (01) ==
LOC: FCC-LAB 10:27
PROVIDERS: ATTEND Nurse Practitioner Family
DX: N50.89 Other specified disorders of the male genital organs (principal); D64.9 Anemia, unspecified; E75.6 Lipid storage disorder, unspecified; E11.9 Type 2 diabetes mellitus without complications
CPT/HCPCS: 36415; 80053; 80061; 80074; 81001; 83037; 85025; 86592; 86631; 86695; 86696; 87389; 87800

== ENCOUNTER 2018-03-26 20:38 | Inpatient (IN) ==
[2018-03-26] MEDS ORDERED: ZOFRAN 4 MG/2 ML IVP STA (20:56)
[2018-03-26] MEDS ORDERED: LACTATED RINGERS 1,000 ML IV STA ×2 (20:56→21:59)
[2018-03-26] MEDS ORDERED: TORADOL IVP STA ×2 (20:58→21:59)
[2018-03-26] MEDS ORDERED: BENTYL IM STA (20:58)
--- NOTE | 2018-03-26 21:01 | ED.PDOC ---
General ED Provider: Dr. WINDY MOON Chief Complaint: Syncope Stated Complaint: Patient is a 47 year old male who is brought by his girlfriend after she states he had a syncople episode today. He has been working on his yard for the past 3 days. Has been able to drink until this eveining when he started cramping and vomiting with severe abdominal and left chest pain. He recently had Laproscopic hernia repair and Gallbladder surgery afew weeks ago. Rates his pain as 10/10 Time Seen by Physician: 20:59 Information Source: Patient Exam Limitations: No limitations Primary [facility] Nursing and Triage Documentation Reviewed and Agree: Yes Does patient meet sepsis criteria?: No If yes, has appropriate treatment been initiated?: No System Inflammatory Response Syndrome: Not Applicable Sepsis Protocol: For patient's 13 years and over: Temp is 96.8 and below OR 101 and greater Pulse >90 BPM Resp >20/minute Acutely Altered Mental Status Are patient's symptoms suggestive of a new infection, such as: -Pneumonia -Skin, Soft Tissue -Endocarditis -UTI -Bone, Joint Infection -Implantable Device -Acute Abdominal Infection -Wound Infection -Meningitis -Blood Stream Catheter Infection -Unknown Review of Systems - Review Of Systems Constitutional: Reports: Diaphoresis Eyes: Reports: No symptoms Ears, Nose, Mouth, Throat: Reports: No symptoms Respiratory: Reports: No symptoms Cardiac: Reports: Chest pain, Lightheadedness, Syncope (not sure how long he was out. ) GI: Reports: Abdominal pain, Nausea, Poor appetite, Poor fluid intake, Vomiting : Reports: No symptoms Musculoskeletal: Reports: No symptoms Skin: Reports: No symptoms Neurological: Reports: Anxiety Endocrine: Reports: Excessive sweating Hematologic/Lymphatic: Reports: No symptoms All Other Systems: Reviewed and Negative Past Medical History - Past Medical History Endocrine: Reports: DM 2 Cardiovascular: Reports: Hypertension Respiratory: Reports: None Hematological: Reports: Sickle Cell Gastrointestinal: Reports: Pancreatitis Genitourinary: Reports: None Neuro/Psych: Reports: Seizure Musculoskeletal: Reports: None Cancer: Reports: None Other Pertinent Past Medical History: hernia surgery right lower abd- states having rectal bleeding(recc follow u - Surgical History General Surgical History: Reports: Hernia Repair (RT 1-17) - Family History Family History: Reports: Hypertension - Social History Smoking Status: Current every day smoker, Heavy tobacco smoker Hx Substance Use: No Alcohol Screening: None Physical Exam - Physical Exam Appearance: Ill-appearing Ill-appearing: Moderate Pain Distress: Severe Neck: Supple Respiratory: Airway patent, Breath sounds clear, Breath sounds equal, Respirations nonlabored Cardiovascular: RRR, Pulses normal, No rub, No murmur GI/: Soft, Nontender, No masses, Bowel sounds normal, No Organomegaly Musculoskeletal: Normal strength, ROM intact, No edema, No calf tenderness Skin: Warm, Dry, Normal color Neurological: Alert, Oriented Psychiatric: Anxious Interpretation - Radiology Interpretation Radiology Interpretation By: Radiologist Radiology Results: Negative Exam Interpreted: CT Scan (head ) Radiology Interpretation By: Radiologist Radiology Results: Negative Exam Interpreted: Portable CXR - [place] Rate: Normal Rhythm: Sinus Ectopy: None - EKG Interpretation Time of EKG #1: 21:04 Rate: Normal Rhythm: Sinus Ectopy: None [place]: NL ST Segment: Normal Interpretation: Normal EKG Physician Notification - Case Discussed Physician Notified: Dr Huffman Time of Notification: 22:31 Critical Care Note - Critical Care Note Total Time (mins): 35 Course - Course Hematology/Chemistry: 03/26/18 21:04 03/26/18 21:04 Orders, Labs, Meds: Lab Review 03/26/18 03/26/18 21:04 21:04 WBC 9.24 RBC 5.05 Hgb 14.5 Hct 43.7 MCV 86.5 MCH 28.7 MCHC 33.2 RDW Coeff of Zoya 15.2 H Plt Count 220 Immature Gran % (Auto) 0.4 Neut % (Auto) 58.7 Lymph % (Auto) 28.0 [place] % (Auto) 10.7 H Eos % (Auto) 1.2 Baso % (Auto) 1.0 Immature Gran # (Auto) 0.0 Neut # (Auto) 5.4 Lymph # (Auto) 2.6 [place] # (Auto) 1.0 Eos # (Auto) 0.1 Baso # (Auto) 0.1 Sodium 136 Potassium 3.2 L Chloride 99 Carbon Dioxide 21 Anion Gap 19.2 BUN 36 H Creatinine 5.27 H* Estimated GFR (MDRD) 14.00 BUN/Creatinine Ratio 6.83 Glucose 117 H Calcium 9.6 Magnesium 2.6 H Total Bilirubin 1.0 AST 69 H ALT 39 Alkaline Phosphatase 127 Total Creatine Kinase 3078 CK-MB (CK-2) 8.1 H* CK-MB (CK-2) % 0.88227 Troponin I 0.0700 Total Protein 9.6 H Albumin 4.4 Globulin 5.2 Albumin/Globulin Ratio 0.85 Orders Category Date Time Status EKG-(ED ONLY) Stat CARDIO 03/26/18 20:55 Ordered ED IV/MEDIPORT/POWERPORT .ONCE EMERGENCY 03/26/18 21:59 Active CBC W/ AUTO DIFF Stat LAB 03/26/18 21:04 Completed COMPREHENSIVE METABOLIC PANEL Stat LAB 03/26/18 21:04 Completed CREATINE KINASE Stat LAB 03/26/18 21:04 Completed MAGNESIUM Stat LAB 03/26/18 21:04 Completed TROPONIN I Stat LAB 03/26/18 21:04 Completed 0.9 % Sodium Chloride [Saline Flush] MEDS 03/26/18 21:59 Ordered 1 syr IVF PRN PRN Dicyclomine Inj [Bentyl] MEDS 03/26/18 20:58 Discontinued 20 mg IM ONCE STA Ketorolac Tromethamine [Toradol] MEDS 03/26/18 20:58 Discontinued 30 mg IVP ONCE STA Ondansetron HCl/Pf [Zofran 4 mg/2 ml] MEDS 03/26/18 20:56 Discontinued 4 mg IVP ONCE STA Ringers Lactated Solution [Lactated Ringers] 1,000 ml MEDS 03/26/18 20:56 Discontinued IV BOLUS Ringers Lactated Solution [Lactated Ringers] 1,000 ml MEDS 03/26/18 21:59 Active IV BOLUS CHEST, 1V AP ONLY Stat RADS 03/26/18 20:[address] HEAD W/O CONTRAST Stat RADS 03/26/18 20:55 Completed Medications Generic Name Dose Route Start Last Admin Trade Name Freq PRN Reason Stop Dose Admin Lactated Ringer's 1,000 mls @ 1,000 mls/hr 03/26/18 21:59 03/26/18 22:18 Lactated Ringers IV 03/26/18 22:58 1,000 mls/hr BOLUS STA Administration Sodium Chloride 1 syr 03/26/18 21:59 Saline Flush IVF PRN PRN To flush IV Discontinued Medications Generic Name Dose Route Start Last Admin Trade Name Freq PRN Reason Stop Dose Admin Dicyclomine HCl 20 mg 03/26/18 20:58 03/26/18 21:09 Bentyl IM 03/26/18 20:59 20 mg ONCE STA Administration Lactated Ringer's 1,000 mls @ 1,000 mls/hr 03/26/18 20:56 03/26/18 21:09 Lactated Ringers IV 03/26/18 21:55 1,000 mls/hr BOLUS STA Administration Ketorolac Tromethamine 30 mg 03/26/18 20:58 03/26/18 21:10 Toradol IVP 03/26/18 20:59 30 mg ONCE STA Administration Ondansetron HCl 4 mg 03/26/18 20:56 03/26/18 21:11 Zofran 4 Mg/2 Ml IVP 03/26/18 20:57 4 mg ONCE STA Administration Vital Signs: Temp Pulse Resp BP Pulse Ox 03/26/18 20:40 98.9 F 90 20 151/110 H 96 LISA Risk Score Age >/= 65: No >/= 3 CAD Risk Factors: No Known CAD (Stenosis >/= 50%): No ASA Use in Past 7 Days: No Severe Angina (>/= 2 episodes in 24 hours): No EKG ST Changes >/= 0.5mm: No Postive Cardiac Marker: No LISA Total Score: 0 LISA Risk Score: Risk Score Odds of by 30D 0 0.1 (0.1-0.2) 1 0.3 (0.2-0.3) 2 0.4 (0.3-0.5) 3 0.7 (0.6-0.9) 4 1.2 (1.0-1.5) 5 2.2 (1.9-2.6) 6 3.0 (2.5-3.6) 7 4.8 (3.8-6.1) Departure - Departure Time of Disposition: 22:25 Disposition: ADMITTED INPATIENT Discharge Problem: Acute renal failure due to rhabdomyolysis, Dehydration Condition: Fair Pt referred to PMD for follow-up: Yes IPMP verified?: No Allergies/Adverse Reactions: Allergies No Known Allergies Allergy (Verified 03/26/18 21:04) Home Medications: Ambulatory Orders Divalproex Sodium [Divalproex Sodium ER] 500 mg PO BID 06/22/15 Metoprolol Succinate [Toprol Xl] 25 mg PO DAILY 02/05/18
--- NOTE | 2018-03-26 21:41 | CT ---
EXAM: CT of the head without contrast. HISTORY: Syncope. COMPARISON: 11/25/2017 TECHNIQUE: Contiguous axial images at 5 mm intervals were obtained from the base of the skull to the vertex of the calvarium. No contrast was given. FINDINGS: The CSF containing spaces are normal in size and position. There are no extraaxial fluid collections. There is no evidence of an acute intracranial hemorrhage. There are no masses or mass effect. No areas of abnormal density are identified. Munoz-white differentiation is normal. The o sseous and extracranial soft tissues are normal. IMPRESSION: No acute intracranial abnormality.
--- NOTE | 2018-03-26 21:41 | DI ---
EXAM: Single-view chest HISTORY: Chest pain COMPARISON: Two-view chest 11/25/2017 FINDINGS: The cardiomediastinal silhouette is normal. The lungs are clear bilaterally. No osseous abnormalities identified. IMPRESSION: No evidence of active pulmonary disease.
[2018-03-26] MEDS ORDERED: ZOFRAN 4 MG/2 ML IVP PRN (22:26)
[2018-03-26] MEDS ORDERED: MORPHINE 2 MG/ML SYRINGE IVP PRN (22:26)
[2018-03-26] MEDS ORDERED: TYLENOL PO PRN (22:26)
[2018-03-26 23:22] VITALS: BMI 27.3
[2018-03-26] MEDS: SODIUM CHLORIDE 1,000 ML IV SCH (23:24)
[2018-03-27] MEDS: SODIUM CHLORIDE 1,000 ML IV SCH ×4 (03:18→19:57)
[2018-03-27] MEDS ORDERED: K-DUR PO STA (08:55)
[2018-03-27] MEDS ORDERED: HUMULIN R SUBCUT PRN (08:57)
[2018-03-28] MEDS: SODIUM CHLORIDE 1,000 ML IV SCH ×3 (01:37→11:29)
[2018-03-28 14:55] VITALS: BP 161/86; TEMP 97.8
--- NOTE | 2018-03-29 08:31 | HP ---
DATE OF SERVICE: 03/26/18 CHIEF COMPLAINT: Syncope HISTORY OF PRESENT ILLNESS: This is a 47 year old male who was brought to the emergency room by girlfriend for passing out. He is having some muscle cramps and not able to tolerated the water. 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 The patient came to the emergency room and see by Dr. Patel. Blood pressure 151/101. He has a history of diabetes. In the emergency room his labs showed a potassium 3.2, BUN 36, creatinine 5.27, WBC normal. At that time the patient being admitted to the hospital. Elevated CK level is 8.1. The patient is admitted to the hospital for acute renal failure, heat exhaustion and hypokalemia. REVIEW OF SYSTEMS: CONSTITUTIONAL: No fever, no chills. Weakness and tiredness. Passed out. HEENT: Normal. ENDOCRINE: No weight gain; no weight loss. CVS: No chest pain. No PND, no orthopnea. No shortness of breath. No PND, no orthopnea. RESPIRATORY: No cough, no congestion. No hemoptysis. GI: Nausea, Vomiting. No abdominal pain. No melena. : No hematuria. No polyuria. MUSCULOSKELETAL: No joint swelling. Muscle cramps. PSYCHIATRIC: Not anxious. No depression. No suicidal thoughts. No homicidal thoughts. SKIN: Intact, no open lesions. PAST MEDICAL HISTORY: Angina Hypertension Dyslipidemia History of seizure disorder Headaches History of pancreatitis Sick cell disease Nicotine use PAST SURGICAL HISTORY: Hernia mesh 2018 Home medical hernia repair PERSONAL HISTORY: The does smoke, no alcohol and drugs FAMILY HISTORY: Significant for the [place] and hypertension, diabetes MEDICATIONS: Zantac Lisinopril Metformin ALLERGIES: No known drug medication PHYSICAL EXAMINATION: V/S: Blood pressure 151/110, respiratory rate 20, heart rate 90, temperature 98.9 with saturation 96%. GENERAL: Sick looking man laying in the bed. HEENT: Atraumatic, normocephalic. No scleral icterus. Pallor positive. Mucosa dry. NECK: Supple. No JVD, no bruit. No lymphadenopathy. No thyromegaly. HEART: S1, S2 normal. No murmur. No cyanosis or clubbing. No ascites. LUNGS: Clear to auscultation. No rales or rhonchi. ABDOMEN: Soft, uncomfortable and discomfort all over. Bowel sounds are active. No CVA tenderness. No rigidity or guarding. EXTREMITIES: No pedal edema. No cyanosis or clubbing MUSCULOSKELETAL: Normal joints, no swelling. Muscles aches. NEUROLOGIC: The patient is SKIN: Intact; no open lesions. LYMPHATIC: No lymph nodes palpable. LABS: Sodium 136, potassium 3.2, chloride 99, bicarb 21, BUN 36, creatinine 5.27 and glucose 117, magnesium 2.6, AST 69, Total creatinine kinase 3078, CK 88.1, WBC 9.24, hgb 14.5, hct 43.7, plt count 220. ASSESSMENT: 1. Acute renal failure 2. Syncope 3. Heat exhaustion 4. History of diabetes 5. Hypertension PLAN: 1. Admit patient to the regular floor 2. CBC and CMP today and daily 3. IV Fluids 4. Stop Metformin and Lisinopril 5. Daily I&O's 6. Accu-checks with coverage TIME SPENT: MORE THAN 75 minutes; came and examined the patient in the emergency room and discussed the plan of care with Dr. Amanda DUQUE
--- NOTE | 2018-03-29 09:41 | PN ---
DATE OF SERVICE: 03/28/18 SUBJECTIVE: The patient is feeling better. Hgb has dropped from the 14.5 to 9.9. Blood pressure been elevated 153/82 and medication been on hold Lisinopril and Metformin. Urinating good. REVIEW OF SYSTEMS: CONSTITUTIONAL: No fever, no chills. HEENT: Normal. ENDOCRINE: No weight gain, no weight loss. CVS: No angina symptoms. No CHF symptoms. No palpitations. No atypical chest pain for CAD. No shortness of breath. No PND, no orthopnea. RESPIRATORY: No cough, no hemoptysis. GI: No nausea, no vomiting. No abdominal pain. : No hematuria. No polyuria. MUSCULOSKELETAL: No joint swelling. PSYCHIATRIC: Not anxious. No depression. No suicidal thoughts. No homicidal thoughts. SKIN: Intact. No rash. PHYSICAL EXAMINATION: V/S: blood pressure 153/82, respiratory rate 22, heart rate 73, temperature 97.7 with saturation is 97%. HEENT: Normocephalic, atraumatic. Mucosa dry. NECK: Supple. No JVD, no carotid bruit. No lymphadenopathy. LUNGS: Clear to auscultation. No rales or rhonchi. HEART: S1, S2 normal. No S3. No murmur, gallop or regurgitation. ABDOMEN: Soft, nontender. Bowel sounds active. No rigidity. No rebound or guarding. No CVA tenderness. EXTREMITIES: No cyanosis, clubbing or pedal edema. MUSCULOSKELETAL: No joint swelling. NEUROLOGIC: Awake, alert, oriented times three. No focal deficit. LYMPHATIC: No lymph nodes palpable. SKIN: Intact. LABS: WBC 5.4, hgb 9.9, hct 30.3, plt count6 136, sodium 142, potassium 3.5, chloride 113, bicarb 21, BUN 18, creatinine 1.58 and glucose 133. Toxicology screen is positive for the marijuana. ASSESSMENT: 1. Acute renal failure 2. Heat exhaustion 3. Early Rhabdomyolysis 4. Diabetes 5. Hypertension PLAN: 1. Continue IV fluids 2. Continue hold Lisinopril and Metformin. Did explain that given the patient' s condition most likely the medication might aggravate the problem with the dehydration and renal failure, advised that the medication be held at this time until the kidney function gets normal. TIME SPENT: More than 35 minutes MTDD
--- NOTE | 2018-03-29 09:50 | PN ---
DATE OF SERVICE: 03/27/18 SUBJECTIVE: Muscles cramps were better and not vomiting. BUN and creatinine has slightly improved 33 and 4.1. Urine output is good. REVIEW OF SYSTEMS: CONSTITUTIONAL: No fever, no chills. HEENT: Normal. ENDOCRINE: No weight gain, no weight loss. CVS: No angina symptoms. No CHF symptoms. No palpitations. No atypical chest pain for CAD. No shortness of breath. No PND, no orthopnea. RESPIRATORY: No cough, no hemoptysis. GI: No nausea, no vomiting. No abdominal pain. : No hematuria. No polyuria. MUSCULOSKELETAL: No joint swelling. PSYCHIATRIC: Not anxious. No depression. No suicidal thoughts. No homicidal thoughts. SKIN: Intact. No rash. PHYSICAL EXAMINATION: V/S: Blood pressure 122/57, respiratory rate 20, heart rate 56 and temperature 98.0 with saturation 98%. HEENT: Normocephalic, atraumatic. Mucosa dry. Pallor positive. No icterus. NECK: Supple. No JVD, no carotid bruit. No lymphadenopathy. LUNGS: Clear to auscultation. No rales or rhonchi. HEART: S1, S2 normal. No S3. No murmur, gallop or regurgitation. ABDOMEN: Soft, nontender. Bowel sounds active. No rigidity. No rebound or guarding. No CVA tenderness. EXTREMITIES: No cyanosis, clubbing or pedal edema. MUSCULOSKELETAL: No joint swelling. NEUROLOGIC: Awake, alert, oriented times three. No focal deficit. LYMPHATIC: No lymph nodes palpable. SKIN: Intact. LABS: Sodium 136, potassium 3.1, chloride 104, bicarb 23, BUN 33, creatinine 4.13, total creatinine Kinase decreased to 2265, CK-MB came down to 5.8, WBC 8.21, hgb 11.6, hct 35.4, plt count 174. ASSESSMENT: 1. Acute renal failure 2. Heat exhaustion 3. Hypokalemia 4. Early Rhabdomyolysis 5. Diabetes 6. Hypertension PLAN: 1. Will get a U/A 2. Continue IV fluids at 200ml per hour 3. Continue hold home medication 4. Regular insulin coverage with Accu-checks TIME SPENT: More than 35 minutes MTDD
--- NOTE | 2018-03-29 13:06 | DS ---
DATE OF SERVICE: 03/28/18 FINAL DIAGNOSIS: 1. Acute renal failure 2. Early Rhabdomyolysis 3. Anemia most likely from hemodilution 4. Diabetes 5. Hypertension 6. Heat exhaustion 7. Elevated CK DISCHARGE INSTRUCTIONS: Discharge the patient home. Followup in the [facility] within 3 days. Please hold current medication Metformin and Lisinopril until seen in the office by me. MEDICATIONS AT DISCHARGE: Zantac Lisinopril-On hold Metformin- On hold NEW PRESCRIPTIONS: None DIET INSTRUCTIONS: Regular ACTIVITY: As much as tolerated DISEASE SPECIFIC EDUCATION: Acute renal failure Diabetes Chronic kidney disease been discussed and verbalized understanding. HOSPITAL COURSE: Leonel Severino 47 year old male came to the emergency room with feeling weak, muscle weakness and tired and abdominal pain and cramping. Found to have acute renal failure with BUN 36 and creatinine 5.27, potassium 3.2, WBC was normal. 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 Started aggressive IV fluids on the patient. BUN and creatinine went down to 33 and 4.13 and then 18 and 13. Meanwhile glucose 117 and 133. Metformin and Lisinopril was held. CK-MB was elevated. Total creatinine kinase was high 3078 and with the elevated CK-MB 8.1.Gradually they were also getting better. The patient been having good urine output and feeling better. Potassium being replacement. Hospital course was uneventful. On March 28 he decided that he has to go home and he has some work that needs to be done so the patient did one more blood work and by late in the afternoon on March 28 which decrease the BUN 18 to 13 and creatinine 1.5 to 1.30. At that time the patient being discharged home. TIME SPENT: MORE THAN 65 MINUTES MTDD
== END 2018-03-28 16:40 | disposition home or self-care (01) | DRG 683 ==
LOC: ED 20:38 → MEDSURG A 22:33
PROVIDERS: ADMIT Emergency Medicine; ATTEND Emergency Medicine
DX: N17.9 Acute kidney failure, unspecified (principal); M62.82 Rhabdomyolysis; E86.0 Dehydration; R55 Syncope and collapse; F41.9 Anxiety disorder, unspecified; I10 Essential (primary) hypertension; R07.9 Chest pain, unspecified; R53.1 Weakness; R10.9 Unspecified abdominal pain; R11.2 Nausea with vomiting, unspecified; R63.0 Anorexia; E11.9 Type 2 diabetes mellitus without complications; X30.XXXA Exposure to excessive natural heat, initial encounter; Y93.H9 Activity, other involving exterior property and land maintenance, building and construction; Z68.27 Body mass index [BMI] 27.0-27.9, adult
CPT/HCPCS: 36415; 80048; 80053; 80306; 81001; 82550; 82553; 82962; 83735; 84484; 85025; 93005; 93010; 96360; 96361; 96372; 96375; 99285

== ENCOUNTER 2018-04-02 15:56 | Outpatient (CLI) ==
[2013-03-01 11:31] VITALS: TEMP 98
== END 2018-04-02 15:57 | disposition home or self-care (01) ==
LOC: RHC-LAB 15:56
PROVIDERS: ATTEND Emergency Medicine
DX: N17.9 Acute kidney failure, unspecified (principal); R35.0 Frequency of micturition
CPT/HCPCS: 36415; 80053; 81001

== ENCOUNTER 2019-05-05 07:42 | Emergency (ER) ==
[2019-05-05 07:45] VITALS: BP 120/62; TEMP 97.8; BMI 28.0
[2019-05-05] MEDS ORDERED: DECADRON 4 MG/ML SDV IM STA (07:52)
[2019-05-05] MEDS ORDERED: BENADRYL IM STA (07:53)
--- NOTE | 2019-05-05 08:53 | ED.PDOC ---
General ED Provider: Dr. SHERRI BELLO-ER Chief Complaint: Non-specific Complaint Stated Complaint: my lip is swollen Time Seen by Physician: 07:50 Mode of Arrival: Walk-In Information Source: Patient Exam Limitations: No limitations Primary Care Provider: DANIA BARBER Nursing and Triage Documentation Reviewed and Agree: Yes Does patient meet sepsis criteria?: No System Inflammatory Response Syndrome: Not Applicable Sepsis Protocol: For patient's 13 years and over: Temp is 96.8 and below OR 101 and greater Pulse >90 BPM Resp >20/minute Acutely Altered Mental Status Are patient's symptoms suggestive of a new infection, such as: -Pneumonia -Skin, Soft Tissue -Endocarditis -UTI -Bone, Joint Infection -Implantable Device -Acute Abdominal Infection -Wound Infection -Meningitis -Blood Stream Catheter Infection -Unknown EENT Complaint Exam - Dental/Oral Complaint/Exam Mechanism of Injury: No known trauma Onset/Duration: 24hrs Symptoms Are: Still present Timing: Constant Initial Severity: Mild Current Severity: Mild Location: lower lip Character: Reports: Dull Aggravating: Reports: None Alleviating: Reports: None Associated Signs and Symptoms: Reports: Swelling. Denies: Discharge, Fever, Foul odor, Foul taste in mouth Cervical Lymphadenopathy Present: No Facial Swelling Present: Yes Bleeding Present: No Oropharynx Findings: Absent: Clots, Active bleeding Septal Hematoma: No Foreign Body Present: No Dysphagia Present: No Drooling Present: No Asymmetrical Tonsillar Swelling Present: No Uvula Midline: Yes Danni-tonsillar Fluctuence: No Trismus Present: No Palatal Petechiae Present: No Scarlatinaform Rash Present: No Differential Diagnoses: Other Review of Systems - Review Of Systems Constitutional: Reports: No symptoms Eyes: Reports: No symptoms Ears, Nose, Mouth, Throat: Reports: Mouth swelling Respiratory: Reports: No symptoms Cardiac: Reports: No symptoms GI: Reports: No symptoms : Reports: No symptoms Musculoskeletal: Reports: No symptoms Skin: Reports: No symptoms Neurological: Reports: No symptoms Endocrine: Reports: No symptoms Hematologic/Lymphatic: Reports: No symptoms All Other Systems: Reviewed and Negative Past Medical History - Past Medical History Previously Healthy: No Endocrine: Reports: DM 2 Cardiovascular: Reports: Hypertension Respiratory: Reports: None Hematological: Reports: Sickle Cell Gastrointestinal: Reports: Pancreatitis Genitourinary: Reports: None Neuro/Psych: Reports: Seizure Musculoskeletal: Reports: None Cancer: Reports: None Other Pertinent Past Medical History: hernia surgery right lower abd- states having rectal bleeding(recc follow u - Surgical History General Surgical History: Reports: Hernia Repair (RT 1-17) - Family History Family History: Reports: Hypertension - Social History Smoking Status: Current every day smoker Hx Substance Use: Yes (medical marijuana) Alcohol Screening: None Physical Exam - Physical Exam Appearance: Well-appearing, No pain distress, Well-nourished Eyes: YRIS, EOMI, Conjunctiva clear ENT: Ears normal, Nose normal, Oropharynx normal (edematous lower lip) Neck: Supple Respiratory: Airway patent, Breath sounds clear, Breath sounds equal, Respirations nonlabored Cardiovascular: RRR GI/: Soft, Nontender, No masses, Bowel sounds normal, No Organomegaly Musculoskeletal: Normal strength, ROM intact, No edema, No calf tenderness Skin: Warm, Dry, Normal color Neurological: Sensation intact, Motor intact, Reflexes intact, Cranial nerves intact, Alert, Oriented Psychiatric: Affect appropriate, Mood appropriate Critical Care Note - Critical Care Note Total Time (mins): 0 Course - Course Orders, Labs, Meds: Orders Category Date Time Status Ice Pack [ED APPLY ICE AFFECTED AREA] .ONCE EMERGENCY 05/05/19 07:53 Active Dexamethasone 4 mg/ml Inj [Decadron 4 mg/ml Sdv] MEDS 05/05/19 07:52 Discontinued 10 mg IM ONCE STA Diphenhydramine Inj [Benadryl] MEDS 05/05/19 07:53 Discontinued 50 mg IM ONCE STA Medications Discontinued Medications Generic Name Dose Route Start Last Admin Trade Name Freq PRN Reason Stop Dose Admin Dexamethasone Sodium Phosphate 10 mg 05/05/19 07:52 05/05/19 08:07 Decadron 4 Mg/Ml Sdv IM 05/05/19 07:53 10 mg ONCE STA Administration Diphenhydramine HCl 50 mg 05/05/19 07:53 05/05/19 08:05 Benadryl IM 05/05/19 07:54 50 mg ONCE STA Administration Vital Signs: Temp Pulse Resp BP Pulse Ox 05/05/19 07:42 97.8 F 73 18 120/62 95 Departure - Departure Time of Disposition: 08:53 Disposition: HOME SELF-CARE Discharge Problem: Angioedema Qualifiers: Encounter type: initial encounter Qualified Code(s): T78.3XXA - Angioneurotic edema, initial encounter Instructions: Angioedema (ED) Condition: Good Pt referred to PMD for follow-up: Yes IPMP verified?: No Additional Instructions: medrol dose pack--ice,---benadryl 50mg q 6hrs #30---f/u with pcp Allergies/Adverse Reactions: Allergies No Known Allergies Allergy (Verified 05/05/19 07:46) Home Medications: Ambulatory Orders Amoxicillin/Potassium Clav [Augmentin 875-125 mg Tab] 1 tab PO BID 7 Days #14 tablet 05/04/19 Diphenhydramine HCl [Benadryl] 25 mg PO Q8HR 3 Days #12 capsule 05/04/19 Gabapentin 100 mg PO BID 05/04/19 Hydrocodone/Acetaminophen [Hydrocodone-Acetamin 10-325 mg] 1 tab PO BID Potassium Chloride [K-Dur] 20 meq PO DAILY 14 Days #14 tab 05/04/19 Disposition Discussed With: Patient, Family
== END 2019-05-05 08:59 | disposition home or self-care (01) ==
LOC: ED 07:42
DX: T78.3XXA Angioneurotic edema, initial encounter (principal); F17.210 Nicotine dependence, cigarettes, uncomplicated
CPT/HCPCS: 96372; 99282